=== PATIENT | female | born 1955 ===

== ENCOUNTER 2025-06-16 16:26 | Emergency (ER) | payer SELFPAY | END 2025-06-16 18:43 | disposition home or self-care (01) | LOC: LB.ED 16:26 | DX: T68.XXXA Hypothermia, initial encounter (principal); F43.9 Reaction to severe stress, unspecified; Z88.2 Allergy status to sulfonamides; Z79.899 Other long term (current) drug therapy | CPT/HCPCS: 99284; A0425; A0429; A9270-GY ==